=== PATIENT | female | born 1985 | race Caucasian/White ===

== ENCOUNTER 2018-01-10 13:16 | Emergency (ER) | payer OTHER ==
[2018-01-10 13:55] VITALS: BP 132/75
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
[2018-01-10] MEDS ORDERED: NAPROXEN 250 MG TABLET PO ONE (14:30)
== END 2018-01-10 14:49 | disposition home or self-care (01) ==
LOC: ER 13:16
DX: S16.1XXA Strain of muscle, fascia and tendon at neck level, initial encounter (principal); V43.52XA Car driver injured in collision with other type car in traffic accident, initial encounter; Z87.891 Personal history of nicotine dependence
CPT/HCPCS: 99283

== ENCOUNTER 2018-01-30 16:15 | Emergency (ER) | payer OTHER ==
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
[2018-01-30 17:36] LABS: APPEARANCE,URINE CLOUDY; BILIRUBIN,URINE MODERATE (NEGATIVE); GLUCOSE, URINE NEGATIVE (NEGATIVE); KETONES,URINE NEGATIVE (NEGATIVE); LEUKOCYTE ESTERASE,URINE NEGATIVE (NEGATIVE); NITRITE,URINE NEGATIVE (NEGATIVE); PROTEIN,URINE 100 mg/dL (NEGATIVE); URINE SPECIFIC GRAVITY 1.042; UROBILINOGEN,URINE NEGATIVE mg/dL (<2.0)
[2018-01-30 17:37] LABS: COLOR,URINE BROWN
--- NOTE | 2018-01-30 18:45 | RADIOLOGY REPORT (SQ) ---
EXAM DESCRIPTION: CT LTD RENAL STONE PROTOCOL ON COMPLETED DATE/TIME: 01/30/2018 6:09 pm REASON FOR STUDY: hematuria flank and low back pain COMPARISON: None. TECHNIQUE: CT scan of the abdomen and pelvis performed without intravenous or oral contrast. Images reviewed with lung, soft tissue, and bone windows. Reconstructed coronal and sagittal MPR images revi ewed. All images stored on PACS. All CT scanners at this facility use dose modulation, iterative reconstruction, and/or weight based d osing when appropriate to reduce radiation dose to as low as reasonably achievable (ALARA). [facility]: Dose Right [facility]: CareDose [facility]: Dose Right [facility]: Teradose 4D [facility]: Smart Lettuce Eat RADIATION DOSE: CT Rad equipment meets quality standard of care and radiation dose reduction techniq ues were employed. CTDIvol: 4.8 mGy. DLP: 238 mGy-cm.mGy. LIMITATIONS: None. FINDINGS: LOWER CHEST: No significant findings. No nodules or infiltrates. NON-CONTRASTED LIVER, SPLEEN, ADRENALS: Evaluation limited by lack of IV contrast. No identified sign ificant masses. PANCREAS: No masses. No peripancreatic inflammatory changes. GALLBLADDER: No identified stones by CT criteria. No inflammatory changes to suggest cholecystitis. RIGHT KIDNEY AND URETER: No suspicious masses. Assessment limited by lack of IV contrast. No signif icant calcifications. No hydronephrosis or hydroureter. LEFT KIDNEY AND URETER: No suspicious masses. Assessment limited by lack of IV contrast. No signifi cant calcifications. No hydronephrosis or hydroureter. AORTA AND RETROPERITONEUM: No aneurysm. No retroperitoneal masses or adenopathy. BOWEL AND PERITONEAL CAVITY: No obvious masses or inflammatory changes. No free fluid. APPENDIX: Normal. PELVIS, BLADDER, AND ABDOMINAL WALL:No abnormal masses. No free fluid. Bladder normal. BONES: Mild superior endplate compression changes at T11. OTHER: No other significant finding. IMPRESSION: Mild superior endplate compression changes at T11 of uncertain age. No acute imaging fi ndings in the abdomen or pelvis. COMMENT: Quality ID # [id number]: Final reports with documentation of one or more dose reduction techniques (e.g., Automated exposure control, adjustment of the mA and/or kV according to patient size, use of iterative reconstruction technique) TECHNICAL DOCUMENTATION: JOB ID: [id number]- All Rights Reserved Reading location - IP/workstation name: [email or web address]
[2018-01-30 20:13] VITALS: BP 125/74
== END 2018-01-30 20:12 | disposition home or self-care (01) ==
LOC: ER 16:15
DX: S29.9XXA Unspecified injury of thorax, initial encounter (principal); V49.9XXA Car occupant (driver) (passenger) injured in unspecified traffic accident, initial encounter; M54.5 Low back pain; G89.29 Other chronic pain; Z87.891 Personal history of nicotine dependence
CPT/HCPCS: 76380; 81001; 81025; 99284

== ENCOUNTER 2018-07-09 11:30 | Emergency (ER) | payer OTHER ==
[2018-07-09 11:34] VITALS: BP 137/77
[2018-07-09] MEDS ORDERED: IBUPROFEN 800 MG TABLET PO ONE (12:26)
[2018-07-09] MEDS ORDERED: LIDOCAINE 5% (700 MG) TRANSDERMAL ADH..PATCH TP ONE (12:27)
--- NOTE | 2018-07-09 12:28 | ER Document Report ---
HPI - HPI Patient complains to provider of: Low back pain Time Seen by Provider: 07/09/18 11:59 Onset: Yesterday Onset/Duration: Gradual Quality of pain: Achy Pain Level: 4 Context: Patient presents complaining of low back pain that started yesterday. Patient denies any urinary retention or incontinence. Patient denies any fever. Associated Symptoms: Other - Low back pain. denies: Fever, Headache Exacerbated by: Standing, Movement Relieved by: Denies Similar symptoms previously: Yes Recently seen / treated by doctor: No - ROS ROS below otherwise negative: Yes Systems Reviewed and Negative: Yes All other systems reviewed and negative - CONSTITUTIONAL Constitutional: DENIES: Fever, Chills - NEURO Neurology: DENIES: Headache, Weakness, Vision blurred, Dizzinesss / Vertigo - URINARY Urinary: DENIES: Dysuria, Urgency, Frequency - REPRODUCTIVE Reproductive: DENIES: : - MUSCULOSKELETAL Musculoskeletal: REPORTS: Back Pain. DENIES: Extremity pain - DERM Skin Color: Normal Skin Problems: None Past Medical History - General Information source: Patient - Social History Smoking Status: Never Smoker Chew tobacco use (# tins/day): No Frequency of alcohol use: None Drug Abuse: None Occupation: [employer] Family History: None, Reviewed & Not Pertinent Patient has suicidal ideation: No Patient has homicidal ideation: No Renal/ Medical History: Denies: Hx Peritoneal Dialysis Musculoskeletal Medical History: Reports Hx Musculoskeletal Deformity Surgical Hx: Negative - Immunizations Hx Diphtheria, Pertussis, Tetanus Vaccination: Yes Vertical Provider Document - CONSTITUTIONAL Agree With Documented VS: Yes Exam Limitations: No Limitations General Appearance: WD/WN, No Apparent Distress Notes: PHYSICAL EXAMINATION: GENERAL: Well-appearing, well-nourished and in no acute distress. HEAD: Atraumatic, normocephalic. EYES: sclera clear, anicteric, conjunctiva are normal. ENT: nares patent, Moist mucous membranes. NECK: Normal range of motion, supple no lymphadenopathy LUNGS: respirations unlabored HEART: Regular rate and rhythm without murmurs EXTREMITIES: Normal range of motion, no pitting or edema. No cyanosis. Gait normal, pt ambulates without difficulty BACK: Lumbar paraspinal tenderness, lower lumbar midline tenderness, no deformities or step-offs. No CVA tenderness. NEUROLOGICAL: Cranial nerves grossly intact. Normal speech, normal gait. No saddle anesthesia. No foot drop PSYCH: Normal mood, normal affect. SKIN: Warm, Dry, normal turgor, no rashes or lesions noted. - INFECTION CONTROL TRAVEL OUTSIDE OF THE [place] IN LAST 30 DAYS: No Course - Re-evaluation Re-evalutation: 07/09/18 12:27 The patient presents with low back pain without signs of spinal cord compression, cauda equina syndrome, infection, aneurysm, or other serious etiology. The patient is neurologically intact. Given the extremely risk of these diagnoses further testing and evaluation for these possibilities does not appear to be indicated at this time. Patient has been instructed to return if the symptoms worsen or change in any way. - Vital Signs Vital signs: Temp Pulse Resp BP Pulse Ox 98.5 F 87 14 137/77 H 99 07/09/18 11:33 07/09/18 11:33 07/09/18 11:33 07/09/18 11:33 07/09/18 11:33 Discharge - Discharge Clinical Impression: Low back pain Qualifiers: Chronicity: unspecified Back pain laterality: bilateral Sciatica presence: without sciatica Qualified Code(s): M54.5 - Low back pain Condition: Stable Disposition: HOME, SELF-CARE Instructions: Ice Packs ([facility]), Low Back Pain ([facility]), Oral Narcotic Medication ([facility]) Additional Instructions: Return immediately for any new or worsening symptoms Followup with your primary care provider, call tomorrow to make a followup appointment Prescriptions: Hydrocodone/Acetaminophen [[place] 5-325 mg Tablet] 1 tab PO Q6 PRN #12 tablet PRN Reason: Naproxen [Naprosyn 250 Nmg Tablet] 1 tab PO BID #14 tablet Forms: Return to Work Referrals: [facility] [Provider Group] - Follow up as needed [facility] [Provider Group] - Follow up as needed [facility] [Provider Group] - Follow up as needed
== END 2018-07-09 12:36 | disposition home or self-care (01) ==
LOC: ER 11:30
DX: M54.5 Low back pain (principal)
CPT/HCPCS: 99283

== ENCOUNTER 2019-07-31 09:23 | Emergency (ER) | payer SELFPAY ==
--- NOTE | 2019-07-31 10:46 | ER Document Report ---
ED Medical Screen (RME) - General Chief Complaint: Knee Pain Stated Complaint: LEG SWELLING Time Seen by Provider: 07/31/19 10:39 TRAVEL OUTSIDE OF THE [place] IN LAST 30 DAYS: No - HPI Notes: 07/31/19 10:44 33 yr old female presents to the ED for evaluation of right knee redness swelling pain that started 2 days ago. Patient thinks she was bitten by something. Denies any fevers or chills. Erythema and pain has become progressively worse over the last 2 days. Has not tried any [id number] medications. Denies a history of MRSA. Worse with time, nothing makes better. Able to bear full weight. I have greeted and performed a rapid initial assessment of this patient. A comprehensive ED assessment and evaluation of the patient, analysis of test results and completion of the medical decision making process will be conducted by additional ED providers. PHYSICAL EXAMINATION: GENERAL: Well-appearing, well-nourished and in no acute distress. HEAD: Atraumatic, normocephalic. EYES: Pupils equal round extraocular movements intact, conjunctiva are normal. NECK: Normal range of motion CV: s1, s2 regular LUNGS: No respiratory distress Musculoskeletal: Normal range of motion NEUROLOGICAL: Normal speech, normal gait. SKIN: Warm, Dry, normal turgor, no rashes or lesions noted. Right knee with erythema and induration on circumferential that extends down to right middle tibia-fibula. distal pulses +2 bilaterally. - Related Data Allergies/Adverse Reactions: No Known Allergies Allergy (Verified 07/31/19 10:39) Home Medications: denies Past Medical History - Social History Chew tobacco use (# tins/day): No Frequency of alcohol use: None Drug Abuse: None Pulmonary Medical History: Denies: Hx Asthma, Hx Bronchitis, Hx Pneumonia Renal/ Medical History: Denies: Hx Peritoneal Dialysis Musculoskeltal Medical History: Reports Hx Musculoskeletal Deformity - Immunizations Hx Diphtheria, Pertussis, Tetanus Vaccination: Yes Physical Exam - Vital signs Vitals: Temp Pulse Resp BP Pulse Ox 98.3 F 83 18 154/75 H 100 07/31/19 10:20 07/31/19 10:20 07/31/19 10:20 07/31/19 10:20 07/31/19 10:20 Course - Vital Signs Vital signs: Temp Pulse Resp BP Pulse Ox 98.3 F 83 18 154/75 H 100 07/31/19 10:20 07/31/19 10:20 07/31/19 10:20 07/31/19 10:20 07/31/19 10:20
[2019-07-31 11:31] LABS: ABSOLUTE BASOPHILS # (AUTO) 0.1 10^3/uL (0.0-0.2); ABSOLUTE EOSINOPHILS # (AUTO) 0.2 10^3/uL (0.0-0.6); ABSOLUTE LYMPHOCYTES (AUTO) 0.9 10^3/uL (0.5-4.7); ABSOLUTE MONOCYTES (AUTO) 0.5 10^3/uL (0.1-1.4); ABSOLUTE NEUT (AUTO) 4.8 10^3/uL (1.7-8.2); BASOPHILS % (AUTO) 0.9 % (0-2); EOSINOPHILS % (AUTO) 2.4 % (0-6); HEMATOCRIT 39.8 % (36.0-47.0); HEMOGLOBIN 13.3 g/dL (12.0-15.5); LYMPHOCYTES % (AUTO) 14.2 % (13-45); MEAN CORPUSCULAR HEMOGLOBIN 29.3 pg (27.0-33.4); MEAN CORPUSCULAR HGB CONC 33.5 g/dL (32.0-36.0); MEAN CORPUSCULAR VOLUME 87 fl (80-97); MONOCYTES % (AUTO) 7.4 % (3-13); PLATELET COUNT 245 10^3/uL (150-450); RED BLOOD COUNT 4.56 10^6/uL (3.72-5.28); RED CELL DISTRIBUTION WIDTH 13.2 % (11.5-14.0); SEGMENTED NEUTROPHILS % (AUTO) 75.1 % (42-78); TOTAL CELLS COUNTED % (AUTO) 100 %; WHITE BLOOD COUNT 6.4 10^3/uL (4.0-10.5)
[2019-07-31 11:51] LABS: ALBUMIN 4.6 g/dL (3.5-5.0); ALKALINE PHOSPHATASE 69 U/L (38-126); ANION GAP 10 (5-19); ASPARTATE AMINO TRANSFERASE 17 U/L (14-36); BILIRUBIN,TOTAL 0.6 mg/dL (0.2-1.3); BLOOD UREA NITROGEN 9 mg/dL (7-20); CARBON DIOXIDE 27 mmol/L (22-30); CHLORIDE 101 mmol/L (98-107); GLUCOSE 88 mg/dL (75-110); POTASSIUM 4.9 mmol/L (3.6-5.0); TOTAL PROTEIN 7.8 g/dL (6.3-8.2)
--- NOTE | 2019-07-31 12:00 | RADIOLOGY REPORT (SQ) ---
EXAM DESCRIPTION: KNEE RIGHT 4 VIEWS COMPLETED DATE/TIME: 07/31/2019 11:42 am REASON FOR STUDY: right knee erythema/induration COMPARISON: None. NUMBER OF VIEWS: Four views. TECHNIQUE: AP, lateral, and both oblique radiographic images acquired of the right knee. LIMITATIONS: None. FINDINGS: MINERALIZATION: Normal. BONES: No acute fracture or dislocation. No worrisome bone lesions. JOINT: No effusion. SOFT TISSUES: No soft tissue swelling. No radio-opaque foreign body. OTHER: No other significant finding. IMPRESSION: NEGATIVE STUDY OF THE RIGHT KNEE. NO RADIOGRAPHIC EVIDENCE OF ACUTE INJURY. TECHNICAL DOCUMENTATION: JOB ID: [id number] [employer]- All Rights Reserved Reading location - IP/workstation name: [email or web address]
--- NOTE | 2019-07-31 12:40 | ER Document Report ---
ED General - General Chief Complaint: Knee Pain Stated Complaint: LEG SWELLING Time Seen by Provider: 07/31/19 10:39 Mode of Arrival: Ambulatory Information source: Patient TRAVEL OUTSIDE OF THE [place] IN LAST 30 DAYS: No - HPI Onset: Other - over the last few days Onset/Duration: Gradual Quality of pain: Burning Severity: Moderate Pain Level: 3 Context: Patient denies trauma to area Associated symptoms: None Exacerbated by: Movement, Other - Palpation of right knee Relieved by: Remaining still Similar symptoms previously: No Recently seen / treated by doctor: No Notes: 33 year old female with no known PMH here for a painful red swollen area below her right knee with some purulant drainage for the past 2 days. The patient denies trauma to her knee, insect bites, fevers, chills, sweats, nausea. The patient denies rapid spreading of the redness and warmth of the area below her knee. - Related Data Allergies/Adverse Reactions: No Known Allergies Allergy (Verified 07/31/19 10:39) Home Medications: denies Past Medical History - General Information source: Patient - Social History Smoking Status: Current Some Day Smoker Chew tobacco use (# tins/day): No Frequency of alcohol use: None Drug Abuse: None Family History: None, Reviewed & Not Pertinent Patient has suicidal ideation: No Patient has homicidal ideation: No Pulmonary Medical History: Denies: Hx Asthma, Hx Bronchitis, Hx Pneumonia Renal/ Medical History: Denies: Hx Peritoneal Dialysis Musculoskeletal Medical History: Reports Hx Musculoskeletal Deformity - Immunizations Hx Diphtheria, Pertussis, Tetanus Vaccination: Yes Review of Systems - Review of Systems Constitutional: No symptoms reported EENT: No symptoms reported Cardiovascular: No symptoms reported Respiratory: No symptoms reported Gastrointestinal: No symptoms reported Genitourinary: No symptoms reported Female Genitourinary: No symptoms reported Musculoskeletal: No symptoms reported Skin: Other - redness, warmth, purulent drainage in area just below the right knee Neurological/Psychological: No symptoms reported Physical Exam - Vital signs Vitals: Temp Pulse Resp BP Pulse Ox 98.3 F 83 18 154/75 H 100 07/31/19 10:20 07/31/19 10:20 07/31/19 10:20 07/31/19 10:20 07/31/19 10:20 - Notes Notes: GENERAL: Well-appearing, well-nourished and in no acute distress. HEAD: Atraumatic, normocephalic. EYES: Pupils equal round and reactive to light, extraocular movements intact, sclera anicteric, conjunctiva are normal. ENT: Nares patent, oropharynx clear without exudates. Moist mucous membranes. NECK: Normal range of motion, supple without lymphadenopathy or JVD. LUNGS: Breath sounds clear to auscultation bilaterally and equal. No wheezes rales or rhonchi. HEART: Regular rate and rhythm without murmurs, rubs or gallops. ABDOMEN: Soft, nontender, normoactive bowel sounds. No guarding, no rebound. No masses appreciated. EXTREMITIES: Normal range of motion, no pitting or edema. No clubbing or cyanosis. NEUROLOGICAL: Cranial nerves II through XII grossly intact. Normal speech, normal gait. PSYCH: Normal mood, normal affect. SKIN: Below Right Knee is elliptical area of erythema and warmth with skin breakdown in the middle of it with some purulent drainage. No large pus/fluid collections palpated. No joint effusion. Course - Re-evaluation Re-evalutation: 07/31/19 12:49 The patient has a clear superficial right lower extremity infection right below her knee. There is no joint involvement. Patient had some labs and imaging done from triage which was unremarkable. I expressed as much pus as I could from the already open wound just below her knee. There is no underlying abscess/fluid collection. Pus was swabbed for wound culture. Will DC patient on Clindamycin and have her follow up with her PCP to ensure improvement. Patient was given strict ER return instructions for signs of a worsening infection. - Vital Signs Vital signs: Temp Pulse Resp BP Pulse Ox 98.3 F 83 18 154/75 H 100 07/31/19 10:20 07/31/19 10:20 07/31/19 10:20 07/31/19 10:20 07/31/19 10:20 - Laboratory Result Diagrams: 07/31/19 11:15 07/31/19 11:15 Discharge - Discharge Clinical Impression: Cellulitis Qualifiers: Site of cellulitis: extremity Site of cellulitis of extremity: lower extremity Laterality: right Qualified Code(s): L03.115 - Cellulitis of right lower limb Condition: Stable Disposition: HOME, SELF-CARE Instructions: Cellulitis ([facility]), MRSA Cellulitis ([facility]) Additional Instructions: Take antibiotics as prescribed. Follow up with your primary care clinic to ensure your infection is improving. Return to an ER if you think the infection is worsening despite being on antibiotics or if you are becoming systemically ill (fevers, chills, sweats, nausea, vomiting, etc). Prescriptions: Clindamycin HCl [Cleocin 150 mg Capsule] 450 mg PO TID #90 capsule
[2019-07-31 13:41] VITALS: BP 140/70
== END 2019-07-31 13:37 | disposition home or self-care (01) ==
LOC: ER 09:23
DX: L03.115 Cellulitis of right lower limb (principal); M25.561 Pain in right knee; M79.89 Other specified soft tissue disorders; F17.200 Nicotine dependence, unspecified, uncomplicated
CPT/HCPCS: 36415; 80053; 83605; 85025; 87040; 87070; 87075; 87077; 87186; 87205; 99283

== ENCOUNTER 2020-04-11 09:41 | Observation (INO) | payer MEDICAID ==
[2020-04-11] MEDS ORDERED: ZOLPIDEM TARTRATE 5 MG TABLET PO PRN (09:47)
[2020-04-11 10:28] LABS: ABSOLUTE BASOPHILS # (AUTO) 0.1 10^3/uL (0.0-0.2); ABSOLUTE EOSINOPHILS # (AUTO) 0.1 10^3/uL (0.0-0.6); ABSOLUTE LYMPHOCYTES (AUTO) 1.8 10^3/uL (0.5-4.7); ABSOLUTE MONOCYTES (AUTO) 0.8 10^3/uL (0.1-1.4); ABSOLUTE NEUT (AUTO) 6.3 10^3/uL (1.7-8.2); BASOPHILS % (AUTO) 0.7 % (0-2); EOSINOPHILS % (AUTO) 1.6 % (0-6); HEMATOCRIT 33.7 % (36.0-47.0); HEMOGLOBIN 11.7 g/dL (12.0-15.5); LYMPHOCYTES % (AUTO) 20.1 % (13-45); MEAN CORPUSCULAR HEMOGLOBIN 30.3 pg (27.0-33.4); MEAN CORPUSCULAR HGB CONC 34.6 g/dL (32.0-36.0); MEAN CORPUSCULAR VOLUME 88 fl (80-97); MONOCYTES % (AUTO) 8.4 % (3-13); PLATELET COUNT 185 10^3/uL (150-450); RED BLOOD COUNT 3.85 10^6/uL (3.72-5.28); RED CELL DISTRIBUTION WIDTH 13.6 % (11.5-14.0); SEGMENTED NEUTROPHILS % (AUTO) 69.2 % (42-78); TOTAL CELLS COUNTED % (AUTO) 100 %; WHITE BLOOD COUNT 9.1 10^3/uL (4.0-10.5)
[2020-04-11 10:52] LABS: ALBUMIN 2.6 g/dL (3.5-5.0); ALKALINE PHOSPHATASE 165 U/L (38-126); ANION GAP 8 (5-19); ASPARTATE AMINO TRANSFERASE 35 U/L (14-36); BILIRUBIN,DIRECT 0.1 mg/dL (0.0-0.4); BILIRUBIN,TOTAL 0.3 mg/dL (0.2-1.3); BLOOD UREA NITROGEN 15 mg/dL (7-20); CARBON DIOXIDE 19 mmol/L (22-30); CHLORIDE 107 mmol/L (98-107); GLUCOSE 88 mg/dL (75-110); POTASSIUM 4.3 mmol/L (3.6-5.0); TOTAL PROTEIN 5.2 g/dL (6.3-8.2); URIC ACID 9.1 mg/dL (2.5-6.2)
[2020-04-11 11:23] LABS: URINE CREATININE 266.9 mg/dL (16-327)
[2020-04-11 11:32] LABS: APPEARANCE,URINE SLIGHTLY-CLOUDY; BILIRUBIN,URINE NEGATIVE (NEGATIVE); COLOR,URINE YELLOW; GLUCOSE, URINE NEGATIVE (NEGATIVE); KETONES,URINE NEGATIVE (NEGATIVE); LEUKOCYTE ESTERASE,URINE TRACE (NEGATIVE); NITRITE,URINE NEGATIVE (NEGATIVE); PROTEIN,URINE >=500 mg/dL (NEGATIVE); URINE SPECIFIC GRAVITY 1.009; UROBILINOGEN,URINE NEGATIVE mg/dL (<2.0)
[2020-04-11 11:47] LABS: URINE AMPHETAMINES SCREEN NEGATIVE; URINE BARBITURATES SCREEN NEGATIVE; URINE BENZODIAZEPINES SCREEN NEGATIVE; URINE COCAINE SCREEN NEGATIVE; URINE MARIJUANA (THC) SCREEN NEGATIVE; URINE METHADONE SCREEN NEGATIVE; URINE PHENCYCLIDINE SCREEN NEGATIVE
[2020-04-11] MEDS ORDERED: NIFEDIPINE 30 MG TAB.ER.24 PO ONE ×2 (12:00→12:06)
[2020-04-11 12:14] LABS: UR PRO/CREAT RATIO RESULT 5.3 mg/mg (0.0-0.2)
[2020-04-11] MEDS ORDERED: HYDRALAZINE HCL INJ/PF 20 MG/1 ML SDV IV ONE (12:20)
[2020-04-11] MEDS ORDERED: HYDRALAZINE HCL INJ/PF 20 MG/1 ML SDV ONE (12:22)
--- NOTE | 2020-04-11 14:59 | Admission Physical ---
Datetime Report Generated by CPN: 04/11/2020 14:58 CURRENT ADMISSION Chief Complaint: Sent from OB Office for Evaluation and Treatment - Please Specify Chief Complaint Other: [facility], was seen for routine appt and had severe range pressure 164/110 Indication for Induction: Not Applicable Admit Impression : Observation/Evaluation Admit Impression- Other: MT/CR ratio 5.3 Admit Plan: Observation/Evaluation ALLERGIES Medication Allergies: No Medication Allergies: No Known Allergies (04/11/2020) Latex: No Latex Allergies OBSTETRICAL HISTORY EDC: 06/24/2020 00:00 : 2 Para: 1 Term: 0 : 1 SAB: 0 IAB: 0 Ectopic: 0 Livin Cesareans: 0 VBACs: 0 Multiple Births: 0 Gestational Diabetes: No Rh Sensitization: No Incompetent Cervix: No JORGE A: No Infertility: No ART Treatment: No Uterine Anomaly: No IUGR: No Hx Previous C/S: No Macrosomia: No Hx Loss/Stillborn: No PIH: Yes Hx : No Placenta Previa/Abruption: No Depression/PP Depression: No PTL/PROM: No Post Hemorrhage: No Current Procedures: Ultrasound Obstetrical History Comments: G1 FEB 2009, delivered at 31 weeks for Preeclampsia G2- current SEE RECORDS Alcohol: No Marijuana : No Cocaine: No Other Illicit Drugs: No Cigarettes: Former Smoker. 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: No Heart Disease: No Hosp/Surgery: Yes Autoimmune Disorder: No Anesthetic Complications: No Kidney Disease: No Abnormal Pap Smear: Yes Neuro/Epilepsy: No Psychiatric Disorders: No Other Medical Diseases: No Hepatitis/Liver Disease: No Significant Family History: No Varicosities/Phlebitis: No Trauma/Violence : No Thyroid Dysfunction: No Medical History Comments: Preeclampsia in 2008 with last , abnormal pap smear in 2004 INFECTIOUS HISTORY Gonorrhea: No Genital Herpes: No Chlamydia: No Tuberculosis: No Syphilis: No Hepatitis: No HIV/AIDS Exposure: No Rash or Viral Illness: No HPV: Yes Infectious History Comments: HPV 2004 PHYSICAL EXAM General: Normal HEENT: Deferred Neurologic: Normal Thyroid: Deferred Heart: Normal Lungs: Normal Breast: Deferred Back: Normal Abdomen: Normal Genitourinary Exam: Normal Extremities: Normal DTRs: Normal Pelvic Type: Not Done Physical Exam Comments: No clonus DTRs normal Vital Signs: Reviewed MEMBRANES Membranes: Intact FETUS A EGA: 29.3 FHR- Baseline: 130 Variability: Moderate 6-25bpm Decelerations: None FHR Category: Category I Admit Comment: sent [facility], for severe range pressure hx of 31 wk induction[facility] del [facility] for pre-eclampsia OBS, 24*urine started Pt denies headache, vision changes and epigastric pain VINCE 07/02/20 by LMP c/w 11 wk sono at [facility] 27.6 wk sono at 889g possible IUGR AC 3%tile, SD 2.47 with incompleted anatomy need CSP, Lat vent .79cm Plan: complete 24*urine tomorrow, BMTZ today, growth US today serial BPs Dr. Abraham attending PLANS FOR LABOR AND DELIVERY Labor and Delivery: None Pain Management: Epidural Feeding Preference: Both Benefit of Breast Feed Discussed: Yes Circumcision: N/A INFORMED CONSENT Assignment: Niesha Abraham MD Signature: with User ID: [email or web address] : with User ID: [email or web address]
[2020-04-11] MEDS ORDERED: BETAMET ACET/BETAMET NA INJ 6 MG/1 ML ONE (15:02)
[2020-04-11] MEDS: BETAMET ACET/BETAMET NA INJ 6 MG/1 ML IM SCH (15:10)
--- NOTE | 2020-04-11 16:42 | RADIOLOGY REPORT (SQ) ---
EXAM DESCRIPTION: U/S OB LIMITED IMAGES COMPLETED DATE/TIME: 04/11/2020 4:17 pm REASON FOR STUDY: pre-eclampsia, COMPARISON: None. TECHNIQUE: Limited transabdominal grayscale ultrasound for evaluation of specific requested obstetri araceli parameters. LIMITATIONS: None. FINDINGS: CERVICAL LENGTH: 3.4 cm Closed. ERNESTINA: Total 11 cm. LARGEST POCKET 3 CM FHR: 147 beats per minute. PRESENTATION: Cephalic. PLACENTA: Not assessed ANATOMY: Not assessed OTHER: Estimated age 28 weeks 6 days, abdominal circumference measuring 2 weeks behind at 27 weeks IMPRESSION: LIMITED OBSTETRICAL ULTRASOUND WITH MEASURED PARAMETERS DELINEATED ABOVE. Trimester of : Third trimester - 28 weeks to delivery. TECHNICAL DOCUMENTATION: JOB ID: [id number] 2010 [employer]- All Rights Reserved Reading location - IP/workstation name: [email or web address]
[2020-04-11] MEDS ORDERED: ACETAMINOPHEN 325 MG TABLET ONE (17:25)
[2020-04-11] MEDS: ACETAMINOPHEN 325 MG TABLET PO PRN (17:26)
--- NOTE | 2020-04-11 17:34 | L&D Progress Notes ---
PROGRESS NOTES Datetime Report Generated by CPN: 04/11/2020 17:33 PROGRESS NOTE Impression: Eclampsia - Mild Plan: Continue Present Management Informed Consent Obtained: Risks, Benefits and Alternatives Discussed Comment: Will transfer to floor. EFW 1216g - 11%. ERNESTINA and SDP wnl. BMZ given. Continue with 24 hr UTP. Pt asymptomatic. BPs stable after adalat CC 30mg, one dose of Hydralazine 5mg given MEMBRANES Membranes: Intact FETUS A : 29.3 SIGNATURE SIGNATURE: [id number] Signature: with User ID: [email or web address]
[2020-04-12] MEDS: ACETAMINOPHEN 325 MG TABLET PO PRN (09:57)
[2020-04-12 12:17] LABS: URINE CREATININE 211.6 mg/dL (16-327)
--- NOTE | 2020-04-12 12:56 | PDOC TRANSFER SUMMARY ---
General Admission Date/PCP: 04/11/20 11:18 - Transfer Diagnosis (1) Elevated blood pressure affecting , antepartum Is this a current diagnosis for this admission?: Yes - Transfer Medications Home Medications: Prenat 115/Iron Fum/Folic/Dss [ 19 Tablet] 1 cap PO DAILYP PRN 04/11/20 Transfer Medications: Current Medications Acetaminophen (Tylenol 325 Mg Tablet) 650 mg PO Q4HP PRN PRN Reason: pain Stop: 05/11/20 09:46 Last Admin: 04/12/20 09:57 Dose: 650 mg Documented by: Betamethasone Acet/Betameth SodPhos (Celestone Inj 6 Mg/1 Ml) 12 mg IM Q24H NIKO Stop: 04/12/20 15:16 Last Admin: 04/11/20 15:10 Dose: 12 mg Documented by: Zolpidem Tartrate (Ambien 5 Mg Tablet) 5 mg PO HSP PRN PRN Reason: SLEEP OR INSOMNIA Stop: 04/18/20 09:46 - Allergies Allergies/Adverse Reactions: No Known Allergies Allergy (Verified 04/11/20 09:52) Hospital Course Hospital Course: Pt admitted with elevated BP and has has Pre-eclamsia work up with elevated pr/cr ratio of 5.3. Blood pressure has been controlled with po procardia. [facility] and [facility]. Physical Exam Vital Signs: Temp Pulse Resp BP Pulse Ox 97.5 F 77 16 136/78 H 99 04/12/20 07:55 04/12/20 07:55 04/12/20 07:55 04/12/20 07:55 04/12/20 07:55 Intake & Output 04/11/20 04/12/20 04/13/20 06:59 06:59 06:59 Intake Total 500 200 Output Total 450 200 Balance 50 0 Weight 72.9 kg General appearance: PRESENT: no acute distress Respiratory exam: PRESENT: clear to auscultation jolynn Cardiovascular exam: PRESENT: RRR Neurological exam: PRESENT: alert Results Laboratory Results: 04/11/20 10:11 04/11/20 10:11 Impressions: Obstetrics Ultrasound 04/11/20 15:03 IMPRESSION: LIMITED OBSTETRICAL ULTRASOUND WITH MEASURED PARAMETERS DELINEATED ABOVE. Trimester of : Third trimester - 28 weeks to delivery.
[2020-04-12 13:01] LABS: 24 HOUR URINE PROTEIN RESULT 1460 mg/day (42-225); URINE PROTEIN 304.2 mg/dL (<12)
[2020-04-12 13:21] VITALS: BP 138/81
[2020-04-12] MEDS: BETAMET ACET/BETAMET NA INJ 6 MG/1 ML IM SCH (15:13)
== END 2020-04-12 15:10 | disposition short-term general hospital (02) ==
LOC: LC 09:41 → LR 11:18 → 2N 18:35
PROVIDERS: ADMIT Student in an Organized Health Care Education/Training Program; ATTEND Student in an Organized Health Care Education/Training Program
DX: O15.03 Eclampsia complicating pregnancy, third trimester (principal); O16.3 Unspecified maternal hypertension, third trimester; R51.9 Headache, unspecified; Z3A.29 29 weeks gestation of pregnancy; Z87.891 Personal history of nicotine dependence
CPT/HCPCS: 36415; 82570 ×2; 83615; 84156 ×2; 84550; 85025; 86592; 80053; 81001; 80307; 76815; G0378 ×2; J3490 ×3; J0360; J0702